=== PATIENT | male | born 1980 | race Caucasian/White ===

== ENCOUNTER 2019-01-03 10:53 | Emergency (ER) | payer MEDICAID ==
--- NOTE | 2019-01-03 11:17 | EDM.PDOC ---
ED HPI GENERAL MEDICAL PROBLEM - General Chief Complaint: General Stated Complaint: FELL AND PASSED OUT Time Seen by Provider: 01/03/19 10:56 Source of Information: Reports: Patient, RN, RN Notes Reviewed History Limitations: Reports: No Limitations - History of Present Illness INITIAL COMMENTS - FREE TEXT/NARRATIVE: Patient presents to the ED at [facility] for the evaluation of a head injury , neck pain, and right wrist pain. Patient states this is a work related injury , he is self employed. Patient states he was stepping from one ladder to the next when his right foot slipped off the ladder, causing him to fall back, hitting his head on a CO2 tank. 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 Patient this he had 1-2 minutes of LOC. He has head and neck pain as well as right shoulder and wrist pain. No previous injury or trauma. No bowel or bladder incontinence. Patient denies any back pain. This was an unwitnessed injury according to the patient. No vision problems. No distracting injuries. Onset: Today, Sudden Onset Date: 01/03/19 Right Hand Pain Score (Numeric/FACES): 4 Right Shoulder Pain Score (Numeric/FACES): 2 Headache Pain Score (Numeric/FACES): 2 - Related Data Allergies Allergy/AdvReac Type Severity Reaction Status Date / Time No Known Allergies Allergy Verified 01/03/19 11:31 Home Meds: Home Meds Omeprazole [Prilosec] 40 mg PO DAILY 01/05/16 [History] buPROPion HCl [Wellbutrin Xl] 300 mg PO DAILY 01/05/16 [History] Baclofen 20 mg PO TID PRN 11/10/16 [History] DULoxetine [Cymbalta] 60 mg PO DAILY 11/10/16 [History] Orphenadrine [Norflex] 100 mg PO BID PRN #10 tab 01/03/19 [Rx] Past Medical History Other HEENT History: HYPERMETROPIA. ASTIGMATISM Cardiovascular History: Reports: None Respiratory History: Reports: None Gastrointestinal History: Reports: Chronic Diarrhea Other Gastrointestinal History: BRIGHT RED RECTAL BLEED Genitourinary History: Reports: None Musculoskeletal History: Reports: Back Pain, Chronic Other Musculoskeletal History: LUMBAR RADICULOPATHY. LUMBAR STENOSIS Neurological History: Reports: None Psychiatric History: Reports: Addiction, Anxiety, Depression Other Psychiatric History: MARIJUANA USE, CONTINUOUS. TOBACCO ABUSE. ALCOHOL ABUSE, DAILY USE Endocrine/Metabolic History: Reports: None Hematologic History: Reports: None Immunologic History: Reports: None Oncologic (Cancer) History: Reports: None Dermatologic History: Reports: None - Past Surgical History Head Surgeries/Procedures: Reports: None HEENT Surgical History: Reports: None Cardiovascular Surgical History: Reports: None GI Surgical History: Reports: None Neurological Surgical History: Reports: Laminectomy Other Neurological Surgeries/Procedures: L4-5 Other Musculoskeletal Surgeries/Procedures:: PIRIFORMIS SYNDROME, back fusion Social & Family History - Caffeine Use Caffeine Use: Reports: Coffee Caffeine Use Comment: 2-4 cups daily ED ROS GENERAL - Review of Systems Review Of Systems: See Below Constitutional: Denies: Fever, Chills Respiratory: Denies: Shortness of Breath, Cough Cardiovascular: Denies: Chest Pain, Palpitations GI/Abdominal: Reports: Nausea. Denies: Abdominal Pain, Vomiting Musculoskeletal: Reports: Neck Pain, Shoulder Pain, Muscle Pain, Muscle Stiffness. Denies: Back Pain, Hand Pain, Leg Pain, Foot Pain Skin: Reports: No Symptoms Neurological: Reports: No Symptoms ED EXAM, GENERAL - Physical Exam Exam: See Below Exam Limited By: No Limitations General Appearance: Alert, No Apparent Distress Eye Exam: Bilateral Eye: EOMI, Normal Inspection, PERRL Ears: Normal External Exam, Normal Canal, Normal TMs Ear Exam: Bilateral Ear: TM normal Head: Normocephalic, Other (right parietal scalp contusion/bump) Neck: Normal Inspection, Supple, Non-Tender Respiratory/Chest: No Respiratory Distress, Lungs Clear, Normal Breath Sounds Cardiovascular: Normal Peripheral Pulses, Regular Rate, Rhythm Peripheral Pulses: 2+: Radial (L), Radial (R) GI/Abdominal: Normal Bowel Sounds, Soft, Non-Tender Back Exam: Normal Inspection Extremities: Other (right wrist pain, dorsum; no obvious bone deformity; skin intact; moderated tendon pain; ROM intake and normal; CMS intake) Neurological: Alert, Oriented Skin Exam: Warm, Dry, Intact, Normal Color Course - Vital Signs Last Recorded V/S: Last Vital Signs Temp 37.2 C 01/03/19 11:00 Pulse 72 01/03/19 12:32 Resp 16 01/03/19 12:32 BP 128/78 01/03/19 12:32 Pulse Ox 100 01/03/19 12:32 - Orders/Labs/Meds Meds: Medications Discontinued Medications Generic Name Dose Route Start Last Admin Trade Name Christianq PRN Reason Stop Dose Admin Acetaminophen 1,000 mg 01/03/19 11:44 01/03/19 11:50 Tylenol Extra Strength PO 01/03/19 11:45 1,000 mg ONETIME ONE Administration Ondansetron HCl 4 mg 01/03/19 11:18 01/03/19 11:50 Zofran Odt PO 01/03/19 11:19 4 mg ONETIME ONE Administration - Radiology Interpretation Free Text/Narrative:: Wrist, right: Negative exam of the right wrist CT C-Spine: No acute findings in the cervical spine CT Head: Negative for any acute intracranial findings Right Shoulder: Mild AC arthritis, otherwise normal See scanned reports in EMR Departure - Departure Time of Disposition: 12:41 Disposition: Home, Self-Care 01 Condition: Good Clinical Impression: Closed head injury with brief loss of consciousness Right shoulder injury Qualifiers: Encounter type: initial encounter Qualified Code(s): S49.91XA - Unspecified injury of right shoulder and upper arm, initial encounter Right wrist injury Qualifiers: Encounter type: initial encounter Qualified Code(s): S69.91XA - Unspecified injury of right wrist, hand and finger(s), initial encounter - Discharge Information *PRESCRIPTION DRUG MONITORING PROGRAM REVIEWED*: Not Applicable *COPY OF PRESCRIPTION DRUG MONITORING REPORT IN PATIENT MARSHA: Not Applicable Prescriptions: Orphenadrine [Norflex] 100 mg PO BID PRN #10 tab PRN Reason: Muscle Spasm Instructions: Head Injury, Adult Referrals: Dee Dee Paris PA-C [Primary Care Provider] - Forms: ED Department Discharge Additional Instructions: 1. Stay well hydrated and rest 2. Use muscle relaxer as needed 3. Continue Tylenol/Advil as needed 4. Use a heating pad 5. See your PCP as symptoms warrant - Problem List Review Problem List Initiated/Reviewed/Updated: Yes - Assessment/Plan Assessment:: CHI w/LOC Right shoulder injury Right wrist injury Work Related accident Plan: Xray discussed with patient. No acute emergency found. Will start on Norflex as needed. Stay well hydrated. Use heating pads. See PCP as symptoms warrant
[2019-01-03] MEDS: Ondansetron 4 MG Tab.DIS PO ONE (11:50)
[2019-01-03] MEDS: Acetaminophen 500 MG Tab PO ONE (11:50)
--- NOTE | 2019-01-03 12:17 | CR ---
[id number] RAD/RAD Shoulder Right 2V Min Exam: RAD Shoulder Right 2V Min Indication:RIGHT SHOULDER PAIN, INJURY. Comparison: No prior imaging for comparison. Discussion: Mild acromioclavicular osteoarthritis. Glenohumeral joint is unremarkable. No fracture or dislocation. No AVN or erosive changes. Bone mineralization is normal. Impression: As above. Radu Pillai MD 01/03/19 6519 Thank you for allowing us to participate in the care of your patient.
--- NOTE | 2019-01-03 12:27 | CT ---
[id number] CT/CT Head WO IV EXAM: NONCONTRAST HEAD CT INDICATION: Head injury and neck pain. COMPARISON: None. DISCUSSION: Right scalp soft tissue swelling. The ventricles and sulci are normal in size and configuration. The brar and white matter are normal in attenuation. No mass effect or midline shift. No acute hemorrhage or extra-axial fluid collection. No acute territorial infarct is identified. A limited look at the orbits and paranasal sinuses is unremarkable. IMPRESSION: 1. Negative for acute intracranial trauma. Junaid Goss MD 01/03/19 5818 Thank you for allowing us to participate in the care of your patient.
--- NOTE | 2019-01-03 12:27 | CT ---
[id number] CT/CT Cervical Spine WO IV EXAM: CT Cervical Spine WO IV INDICATION: HEAD INJURY, NECK PAIN. COMPARISON: None. DISCUSSION: No fracture or compression deformity. Vertebral bodies remain in normal alignment. Scattered changes of spondylosis throughout the cervical spine. No prevertebral soft tissue edema. Lung apices are clear. IMPRESSION: No acute findings in the cervical spine. Radu Pillai MD 01/03/19 1825 Thank you for allowing us to participate in the care of your patient.
--- NOTE | 2019-01-03 12:28 | CR ---
[id number] RAD/RAD Wrist Right 3V Min Exam: RAD Wrist Right 3V Min Indication:WRIST INJURY, PAIN. Comparison: No prior imaging for comparison. Discussion: No significant osseous or soft tissue abnormality. Impression: Negative examination of the wrist. Radu Pillai MD 01/03/19 [id number] Thank you for allowing us to participate in the care of your patient.
[2019-01-03 12:33] VITALS: BP 128/78
== END 2019-01-03 13:00 | disposition home or self-care (01) ==
LOC: VM.ED 10:53
DX: S06.9X9A Unspecified intracranial injury with loss of consciousness of unspecified duration, initial encounter (principal); S49.91XA Unspecified injury of right shoulder and upper arm, initial encounter; S69.91XA Unspecified injury of right wrist, hand and finger(s), initial encounter; W11.XXXA Fall on and from ladder, initial encounter; Z79.899 Other long term (current) drug therapy; Y99.0 Civilian activity done for income or pay
CPT/HCPCS: 70450; 72125; 73030-RT; 73110-RT; 99284-25; A9270-GY

== ENCOUNTER 2019-08-27 11:54 | Emergency (ER) | payer OTHER ==
[2019-08-27] MEDS ORDERED: Sodium Chloride 0.9% 10 ML Syringe FLUSH PRN (12:08)
[2019-08-27] MEDS ORDERED: Sodium Chloride 0.9% 1,000 ML IV ONE (12:12)
--- NOTE | 2019-08-27 12:37 | EDM.PDOC ---
ED HPI GENERAL MEDICAL PROBLEM - General Stated Complaint: CHEST PAIN, CONFUSION Time Seen by Provider: 08/27/19 12:09 Source of Information: Reports: Patient, RN Notes Reviewed History Limitations: Reports: No Limitations - History of Present Illness INITIAL COMMENTS - FREE TEXT/NARRATIVE: Pt. presents to ER with complaints of confusion, fatigue, unsteady gait, chest pain, and generally not feeling well. Pt. states that he felt fine this AM, and throughout the AM developed these symptoms. He is a [place] and was confused [place]. Pt. denies any headache. No numbness/ tingling in the extremities. No problems with balance. Pt. states that his pain is substernal in nature and does not radiate into his jaw, arms, neck, or back. No nausea, vomiting, or diarrhea. Pt. states that he is an alcoholic and would drink half of a 1.75L bottle of hard alcohol a night, but quit 2 days ago. He denies any agitation but complains of sweats. He previously hand stopped drinking for about 10 days in Jul. but started up again the beginning of Aug. He denies any drug use. Onset: Today Location: Reports: Generalized Associated Symptoms: Reports: Confusion, Malaise - Related Data Allergies Allergy/AdvReac Type Severity Reaction Status Date / Time No Known Allergies Allergy Verified 08/27/19 12:59 Home Meds: Home Meds Omeprazole [Prilosec] 20 mg PO DAILY 01/05/16 [History] buPROPion HCl [Wellbutrin Xl] 300 mg PO DAILY 01/05/16 [History] FLUoxetine HCl [Fluoxetine HCl] 80 mg PO DAILY 08/27/19 [History] Gabapentin [Neurontin] 600 mg PO ASDIRECTED 08/27/19 [History] Lisinopril 10 mg PO DAILY 08/27/19 [History] Naltrexone 50 mg PO DAILY 08/27/19 [History] atorvaSTATin [Lipitor] 10 mg PO BEDTIME 08/27/19 [History] tiZANidine HCl [Zanaflex] 2 - 4 mg PO TID PRN 08/27/19 [History] Past Medical History Other HEENT History: HYPERMETROPIA. ASTIGMATISM Cardiovascular History: Reports: None Respiratory History: Reports: None Gastrointestinal History: Reports: Chronic Diarrhea Other Gastrointestinal History: BRIGHT RED RECTAL BLEED Genitourinary History: Reports: None Musculoskeletal History: Reports: Back Pain, Chronic Other Musculoskeletal History: LUMBAR RADICULOPATHY. LUMBAR STENOSIS Neurological History: Reports: None Psychiatric History: Reports: Addiction, Anxiety, Depression Other Psychiatric History: MARIJUANA USE, CONTINUOUS. TOBACCO ABUSE. ALCOHOL ABUSE, DAILY USE Endocrine/Metabolic History: Reports: None Hematologic History: Reports: None Immunologic History: Reports: None Oncologic (Cancer) History: Reports: None Dermatologic History: Reports: None - Past Surgical History HEENT Surgical History: Reports: None Neurological Surgical History: Reports: Laminectomy Other Neurological Surgeries/Procedures: L4-5 Other Musculoskeletal Surgeries/Procedures:: PIRIFORMIS SYNDROME, back fusion Social & Family History - Caffeine Use Caffeine Use: Reports: Coffee Caffeine Use Comment: 2-4 cups daily ED ROS GENERAL - Review of Systems Review Of Systems: See Below Constitutional: Reports: Malaise, Weakness, Fatigue HEENT: Reports: No Symptoms Respiratory: Reports: No Symptoms Cardiovascular: Reports: No Symptoms Endocrine: Reports: No Symptoms GI/Abdominal: Reports: No Symptoms : Reports: No Symptoms Musculoskeletal: Reports: No Symptoms Skin: Reports: No Symptoms Neurological: Reports: Confusion, Weakness, Gait Disturbance Psychiatric: Reports: No Symptoms Hematologic/Lymphatic: Reports: No Symptoms Immunologic: Reports: No Symptoms ED EXAM, GENERAL - Physical Exam Exam: See Below Exam Limited By: No Limitations General Appearance: Alert, WD/WN, No Apparent Distress Eye Exam: Bilateral Eye: EOMI, Normal Fundi, Normal Inspection, PERRL Throat/Mouth: Normal Inspection, Normal Lips, Normal Teeth, Normal Gums, Normal Oropharynx, Normal Voice, No Airway Compromise Head: Atraumatic, Normocephalic Neck: Normal Inspection, Supple, Non-Tender, Full Range of Motion Respiratory/Chest: No Respiratory Distress, Lungs Clear, Normal Breath Sounds, No Accessory Muscle Use, Chest Non-Tender Cardiovascular: Normal Peripheral Pulses, Regular Rate, Rhythm, No Edema, No Gallop, No JVD, No Murmur, No Rub Peripheral Pulses: 4+: Radial (R) GI/Abdominal: Normal Bowel Sounds, Soft, Non-Tender, No Organomegaly, No Distention, No Abnormal Bruit, No Mass, Pelvis Stable (Male) Exam: Deferred Rectal (Males) Exam: Deferred Back Exam: Normal Inspection, Full Range of Motion Extremities: Normal Inspection, Normal Range of Motion, Non-Tender, No Pedal Edema, Normal Capillary Refill Neurological: Alert, Oriented, CN II-XII Intact, Normal Cognition, Normal Gait, Normal Reflexes, No Motor/Sensory Deficits Psychiatric: Normal Affect, Normal Mood Skin Exam: Warm, Dry, Intact, Normal Color, No Rash Lymphatic: No Adenopathy Course - Vital Signs Last Recorded V/S: Last Vital Signs Temp 36.6 C 08/27/19 13:55 Pulse 81 08/27/19 13:55 Resp 18 08/27/19 13:55 BP 148/88 H 08/27/19 13:55 Pulse Ox 98 08/27/19 13:55 - Orders/Labs/Meds Orders: Active Orders 24 hr Category Date Time Status EKG Documentation Completion [RC] STAT Care 08/27/19 12:09 Active Peripheral IV Insertion Adult [OM.PC] Routine Oth 08/27/19 12:09 Ordered Labs: Laboratory Tests 08/27/19 08/27/19 08/27/19 Range/Units 12:30 12:30 12:33 WBC 6.8 (4.0-10.0) x10^3/uL RBC 4.71 (4.5-6.0) x10^6/uL Hgb 15.1 D (14.0-18.0) g/dL Hct 42.8 (40.0-52.0) % MCV 90.9 (78.0-93.0) fL MCH 32.1 H (26.0-32.0) pg MCHC 35.3 (32.0-36.0) g/dL RDW Coeff of Altaf 12.2 (10.0-15.0) % Plt Count 208 D (130-400) x10^3/uL Neut % (Auto) 79.3 (50.0-80.0) % Lymph % (Auto) 15.2 L (25.0-50.0) % Weber % (Auto) 4.7 (2.0-11.0) % Eos % (Auto) 0.4 (0.0-4.0) % Baso % (Auto) 0.4 (0.2-1.2) % PT (10.0-12.8) SEC INR (2.0-3.5) D-Dimer, Quantitative (<=0.58) mg/LFEU Sodium (69-191) mmol/L Potassium (1.5-9.9) mmol/L Chloride (54-184) mmol/L Carbon Dioxide (21-32) mmol/L Anion Gap (10-20) mmol/L BUN (7-18) mg/dL Creatinine (0.70-1.30) mg/dL Est Cr Clr Drug Dosing Estimated GFR (MDRD) Glucose (74-106) mg/dL Lactic Acid (0.4-2.0) mmol/L Calcium (8.5-10.1) mg/dL Corrected Calcium (8.5-10.1) mg/dL Phosphorus (2.6-4.7) mg/dL Magnesium (1.8-2.4) mg/dL Total Bilirubin (0.2-1.0) mg/dL AST (15-37) U/L ALT (16-63) U/L Alkaline Phosphatase (46-116) U/L Troponin I (<=0.056) ng/mL C-Reactive Protein (<=0.9) mg/dL Total Protein (6.4-8.2) g/dL Albumin (3.4-5.0) g/dL Globulin Albumin/Globulin Ratio Urine Color Yellow (YELLOW) Urine Appearance Slightly cloudy H (CLEAR) Urine pH 6.0 (5.0-8.0) Ur Specific [place] 1.010 Urine Protein Negative (NEGATIVE) mg/dL Urine Glucose (UA) Negative (NEGATIVE) mg/dL Urine Ketones Negative (NEGATIVE) mg/dL Urine Occult Blood Trace-intact H (NEGATIVE) Urine Nitrite Negative (NEGATIVE) Urine Bilirubin Negative (NEGATIVE) Urine Urobilinogen 0.2 (0.2) EU/dL Ur Leukocyte Esterase Small H (NEGATIVE) Urine RBC 0-5 (NOT SEEN) /HPF Urine WBC 0-5 (NOT SEEN) /HPF Ur Squamous Epith Cells Not seen (NEGATIVE) /HPF Amorphous Sediment Rare Urine Bacteria Rare (NEGATIVE) /HPF Urine Mucus Rare H (NEGATIVE) /LPF Urine Opiates Screen Negative (NEAGTIVE) Ur Buprenorphine Scrn Negative (NEGATIVE) Ur Oxycodone Screen Negative (NEGATIVE) Ur EDDP (Meth Metab) Negative (NEGATIVE) Urine Methadone Screen Negative (NEGATIVE) Ur Barbiturates Screen Negative (NEGATIVE) Ur Tricyclics Screen Negative (NEGATIVE) Ur Phencyclidine Scrn Negative (NEGATIVE) Ur Amphetamine Screen Negative (NEGATIVE) U Methamphetamines Scrn Negative (NEGATIVE) Urine MDMA Screen Negative (NEGATIVE) U Benzodiazepines Scrn Negative (NEGATIVE) U Cocaine Metab Screen Negative (NEGATIVE) U Marijuana (THC) Screen Negative (NEGATIVE) Ethyl Alcohol (0-3) mg/dL 08/27/19 08/27/19 08/27/19 Range/Units 12:33 12:33 12:33 WBC (4.0-10.0) x10^3/uL RBC (4.5-6.0) x10^6/uL Hgb (14.0-18.0) g/dL Hct (40.0-52.0) % MCV (78.0-93.0) fL MCH (26.0-32.0) pg MCHC (32.0-36.0) g/dL RDW Coeff of Altaf (10.0-15.0) % Plt Count (130-400) x10^3/uL Neut % (Auto) (50.0-80.0) % Lymph % (Auto) (25.0-50.0) % Weber % (Auto) (2.0-11.0) % Eos % (Auto) (0.0-4.0) % Baso % (Auto) (0.2-1.2) % PT 10.0 (10.0-12.8) SEC INR 0.9 L (2.0-3.5) D-Dimer, Quantitative < 0.19 (<=0.58) mg/LFEU Sodium 140 (69-191) mmol/L Potassium 4.2 (1.5-9.9) mmol/L Chloride 102 (54-184) mmol/L Carbon Dioxide 24 (21-32) mmol/L Anion Gap 18.2 (10-20) mmol/L BUN 19 H (7-18) mg/dL Creatinine 1.0 (0.70-1.30) mg/dL Est Cr Clr Drug Dosing TNP Estimated GFR (MDRD) > 60 Glucose 110 H (74-106) mg/dL Lactic Acid (0.4-2.0) mmol/L Calcium 9.2 (8.5-10.1) mg/dL Corrected Calcium 9.12 (8.5-10.1) mg/dL Phosphorus 3.5 (2.6-4.7) mg/dL Magnesium 1.5 L (1.8-2.4) mg/dL Total Bilirubin 0.7 (0.2-1.0) mg/dL AST 29 (15-37) U/L ALT 36 (16-63) U/L Alkaline Phosphatase 96 (46-116) U/L Troponin I < 0.017 (<=0.056) ng/mL C-Reactive Protein 0.3 (<=0.9) mg/dL Total Protein 7.8 (6.4-8.2) g/dL Albumin 4.1 (3.4-5.0) g/dL Globulin 3.7 Albumin/Globulin Ratio 1.11 Urine Color (YELLOW) Urine Appearance (CLEAR) Urine pH (5.0-8.0) Ur Specific [place] Urine Protein (NEGATIVE) mg/dL Urine Glucose (UA) (NEGATIVE) mg/dL Urine Ketones (NEGATIVE) mg/dL Urine Occult Blood (NEGATIVE) Urine Nitrite (NEGATIVE) Urine Bilirubin (NEGATIVE) Urine Urobilinogen (0.2) EU/dL Ur Leukocyte Esterase (NEGATIVE) Urine RBC (NOT SEEN) /HPF Urine WBC (NOT SEEN) /HPF Ur Squamous Epith Cells (NEGATIVE) /HPF Amorphous Sediment Urine Bacteria (NEGATIVE) /HPF Urine Mucus (NEGATIVE) /LPF Urine Opiates Screen (NEAGTIVE) Ur Buprenorphine Scrn (NEGATIVE) Ur Oxycodone Screen (NEGATIVE) Ur EDDP (Meth Metab) (NEGATIVE) Urine Methadone Screen (NEGATIVE) Ur Barbiturates Screen (NEGATIVE) Ur Tricyclics Screen (NEGATIVE) Ur Phencyclidine Scrn (NEGATIVE) Ur Amphetamine Screen (NEGATIVE) U Methamphetamines Scrn (NEGATIVE) Urine MDMA Screen (NEGATIVE) U Benzodiazepines Scrn (NEGATIVE) U Cocaine Metab Screen (NEGATIVE) U Marijuana (THC) Screen (NEGATIVE) Ethyl Alcohol < 3 (0-3) mg/dL 08/27/19 Range/Units 12:33 WBC (4.0-10.0) x10^3/uL RBC (4.5-6.0) x10^6/uL Hgb (14.0-18.0) g/dL Hct (40.0-52.0) % MCV (78.0-93.0) fL MCH (26.0-32.0) pg MCHC (32.0-36.0) g/dL RDW Coeff of Altaf (10.0-15.0) % Plt Count (130-400) x10^3/uL Neut % (Auto) (50.0-80.0) % Lymph % (Auto) (25.0-50.0) % Weber % (Auto) (2.0-11.0) % Eos % (Auto) (0.0-4.0) % Baso % (Auto) (0.2-1.2) % PT (10.0-12.8) SEC INR (2.0-3.5) D-Dimer, Quantitative (<=0.58) mg/LFEU Sodium (69-191) mmol/L Potassium (1.5-9.9) mmol/L Chloride (54-184) mmol/L Carbon Dioxide (21-32) mmol/L Anion Gap (10-20) mmol/L BUN (7-18) mg/dL Creatinine (0.70-1.30) mg/dL Est Cr Clr Drug Dosing Estimated GFR (MDRD) Glucose (74-106) mg/dL Lactic Acid 0.8 (0.4-2.0) mmol/L Calcium (8.5-10.1) mg/dL Corrected Calcium (8.5-10.1) mg/dL Phosphorus (2.6-4.7) mg/dL Magnesium (1.8-2.4) mg/dL Total Bilirubin (0.2-1.0) mg/dL AST (15-37) U/L ALT (16-63) U/L Alkaline Phosphatase (46-116) U/L Troponin I (<=0.056) ng/mL C-Reactive Protein (<=0.9) mg/dL Total Protein (6.4-8.2) g/dL Albumin (3.4-5.0) g/dL Globulin Albumin/Globulin Ratio Urine Color (YELLOW) Urine Appearance (CLEAR) Urine pH (5.0-8.0) Ur Specific [place] Urine Protein (NEGATIVE) mg/dL Urine Glucose (UA) (NEGATIVE) mg/dL Urine Ketones (NEGATIVE) mg/dL Urine Occult Blood (NEGATIVE) Urine Nitrite (NEGATIVE) Urine Bilirubin (NEGATIVE) Urine Urobilinogen (0.2) EU/dL Ur Leukocyte Esterase (NEGATIVE) Urine RBC (NOT SEEN) /HPF Urine WBC (NOT SEEN) /HPF Ur Squamous Epith Cells (NEGATIVE) /HPF Amorphous Sediment Urine Bacteria (NEGATIVE) /HPF Urine Mucus (NEGATIVE) /LPF Urine Opiates Screen (NEAGTIVE) Ur Buprenorphine Scrn (NEGATIVE) Ur Oxycodone Screen (NEGATIVE) Ur EDDP (Meth Metab) (NEGATIVE) Urine Methadone Screen (NEGATIVE) Ur Barbiturates Screen (NEGATIVE) Ur Tricyclics Screen (NEGATIVE) Ur Phencyclidine Scrn (NEGATIVE) Ur Amphetamine Screen (NEGATIVE) U Methamphetamines Scrn (NEGATIVE) Urine MDMA Screen (NEGATIVE) U Benzodiazepines Scrn (NEGATIVE) U Cocaine Metab Screen (NEGATIVE) U Marijuana (THC) Screen (NEGATIVE) Ethyl Alcohol (0-3) mg/dL Meds: Medications Discontinued Medications Generic Name Dose Route Start Last Admin Trade Name Freq PRN Reason Stop Dose Admin Ceftriaxone Sodium 2 gm 08/27/19 13:32 08/27/19 13:39 Rocephin IVPUSH 08/27/19 13:33 2 gm STAT ONE Administration Sodium Chloride 1,000 mls @ 1,000 mls/hr 08/27/19 12:12 08/27/19 13:00 Normal Saline IV 08/27/19 13:11 1,000 mls/hr .BOLUS ONE Administration Sodium Chloride 10 ml 08/27/19 12:08 Saline Flush FLUSH ASDIRECTED PRN Keep Vein Open - Radiology Interpretation Free Text/Narrative:: CT brain is negative for acute pathology Chest x-ray is negative Departure - Departure Time of Disposition: 15:00 Disposition: Home, Self-Care 01 Clinical Impression: UTI (urinary tract infection) - Discharge Information Instructions: Alcohol Withdrawal Syndrome, Urinary Tract Infection, Adult Referrals: Dee Dee Paris PA-C [Primary Care Provider] - Forms: ED Department Discharge Additional Instructions: Bactrim DS 1 twice daily for 7 days Drink plenty of fluids It is possible that your symptoms are being caused by alcohol withdrawl. If you feel agitated, if you are unable to hold down fluids, etc. return to the ER. Recheck in clinic in 10-14 days. - My Orders Last 24 Hours: My Active Orders 08/27/19 12:09 EKG Documentation Completion [RC] STAT Peripheral IV Insertion Adult [OM.PC] Routine - Assessment/Plan Last 24 Hours: My Active Orders 08/27/19 12:09 EKG Documentation Completion [RC] STAT Peripheral IV Insertion Adult [OM.PC] Routine Plan: It is unclear what is causing this patient's symptoms. He does have a UTI which will be treated with Bactrim DS twice daily for a week. He was also given 2 gm of rocephin. I am concerned that is symptoms may be caused by alcohol withdrawl. He was offered admission and observation but refused, stating he would go stay with his sister. He was urged to return to ER if he had any worsening symptoms, agitation, anxiety, or weakness. All questions were answered.
--- NOTE | 2019-08-27 12:59 | CT ---
[id number] CT/CT Head WO IV EXAM: NONCONTRAST HEAD CT INDICATION: Confusion, lightheadedness and blacking out since 1100 COMPARISON: January 03, 2019. DISCUSSION: The ventricles and sulci are normal in size and configuration. The brar and white matter are normal in attenuation. No mass effect or midline shift. No acute hemorrhage or extra-axial fluid collection. No acute territorial infarct is identified. Mild frothy secretions in the left sphenoid sinus. 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 IMPRESSION: 1. No acute intracranial findings. Junaid Goss MD 08/27/19 [id number] Thank you for allowing us to participate in the care of your patient.
--- NOTE | 2019-08-27 13:05 | CR ---
[id number] RAD/RAD Chest PA And Lateral EXAM: RAD Chest PA And Lateral INDICATION: LIGHT HEADED, CONFUSION, BLACKING-OUT SINCE 11:00. COMPARISON: None. DISCUSSION: Cardiomediastinal silhouette is normal in size and contour. No infiltrate, effusion, pneumothorax, or edema. IMPRESSION: Negative examination of the chest. Radu Pillai MD 08/27/19 [id number] Thank you for allowing us to participate in the care of your patient.
[2019-08-27 13:09] LABS: CHLORIDE,CL 102 mmol/L (54-184); SODIUM,NA 140 mmol/L (69-191)
[2019-08-27 13:13] LABS: BARBITURATE SCREEN,URINE NEGATIVE (NEGATIVE); BENZODIAZEPINES SCREEN,URINE NEGATIVE (NEGATIVE); EDDP,URINE SCREEN NEGATIVE (NEGATIVE); METHAMPHETAMINE SCREEN, URINE NEGATIVE (NEGATIVE); TCA SCREEN,URINE NEGATIVE (NEGATIVE); THC SCREEN,URINE 50 NG/ML NEGATIVE (NEGATIVE)
[2019-08-27 13:17] LABS: ANION GAP 18.2 mmol/L (10-20)
[2019-08-27] MEDS ORDERED: cefTRIAXone 2 GM Vial IVPUSH ONE (13:32)
[2019-08-27 14:52] VITALS: BP 148/88; PULSE 81
== END 2019-08-27 14:06 | disposition home or self-care (01) ==
LOC: VM.ED 11:54
DX: N39.0 Urinary tract infection, site not specified (principal); F41.9 Anxiety disorder, unspecified; F32.9 Major depressive disorder, single episode, unspecified; Z79.899 Other long term (current) drug therapy; Z87.891 Personal history of nicotine dependence
CPT/HCPCS: 36415; 70450; 71046; 80053; 80305; 80320; 81001; 83605; 83735; 84100; 84484; 85025; 85379; 85610; 86140; 93005; 96361; 96374; 99285; J0696; J7030; G0480

== ENCOUNTER 2021-05-27 13:35 | Day surgery (SDC) | payer MEDICAID, OTHER ==
[2021-05-27] MEDS ORDERED: fentaNYL 100 MCG/2 ML SDV ONE (14:23)
[2021-05-27] MEDS ORDERED: Propofol 200 MG/20 ML SDV ONE ×3 (14:23→15:41)
[2021-05-27] MEDS: Lactated Ringers 1,000 ML IV SCH (14:26)
[2021-05-27 16:23] VITALS: BP 129/88; PULSE 70
--- NOTE | 2021-05-28 08:13 | OR ---
DATE OF SURGERY: 05/27/2021. REFERRING PROVIDER: Dee Dee Paris PA-C PRE-OPERATIVE DIAGNOSES: 1. History of bloody stools off and on for the past year. Symptoms are worse with alcohol intake. He does have a previous history of rectal bleeding and had last colonoscopy done about 5 years ago. 2. Chronic diarrhea with 3 to 4 loose stools per day. 3. The patient thinks there is a positive family history of colon cancer in paternal grandmother and maternal grandmother. POST-OPERATIVE DIAGNOSES: 1. Single 3 mm polyp at 15 cm, removed using cold forceps. 2. Normal-appearing colonic mucosa. Random biopsies taken from each segment. 3. Normal-appearing distal ileum. Cold biopsy x2 bites taken. PROCEDURE: Colonoscopy with polypectomy x1 using cold forceps, and random biopsies from colonic mucosa and distal ileum. SURGEON: Merritt Waterman M.D. ANESTHESIA: Monitored anesthesia care. BOWEL PREP: Good. Wing is a 41-year-old male who was brought to the endoscopy suite after discussing risks and benefits of the procedure. Informed consent was obtained for conscious sedation and colonoscopy with or without biopsy and/or polypectomy. We also discussed possibility of missed lesions. Pre-procedure exam was unremarkable. IV, oxygen, and monitors were placed. The patient was placed in the left lateral decubitus position. Sedation was administered and a digital rectal exam was performed and unremarkable. Colonoscope was passed into the rectum and slowly advanced all the way to the cecum. Cecum was viewed and photographed. Ileocecal valve was intubated and distal ileum was normal in appearance. Cold biopsy x2 bites taken from the distal ileum. The colonoscope was slowly withdrawn and the mucosa was closely observed in a direct circumferential manner. Random colon biopsies were taken from each segment on the way out. The ascending colon was unremarkable. The transverse colon was unremarkable. The descending colon was unremarkable. The sigmoid colon was unremarkable. Retroflexion was performed and rectal mucosa was unremarkable. Scope was removed. The patient tolerated the procedure well. The patient was monitored until that baseline status. Discharge instructions were reviewed and the patient was discharged in good condition. COMPLICATIONS: None. TOTAL TIME: 19 minutes. ESTIMATED BLOOD LOSS: About 1 mL. RECOMMENDATIONS/FOLLOW-UP: We will await results of path report to determine ideal followup interval and the need for any further evaluation and/or treatment. I would like to kindly thank Dee Dee Paris for this referral. DMB: 05/27/2021 16:09:56 MODL: 05/27/2021 16:46:28 /[id number]
== END 2021-05-27 16:37 | disposition home or self-care (01) ==
LOC: VM.SDS 13:35
PROVIDERS: ATTEND Family Medicine
DX: K63.5 Polyp of colon (principal); K52.9 Noninfective gastroenteritis and colitis, unspecified; I12.9 Hypertensive chronic kidney disease with stage 1 through stage 4 chronic kidney disease, or unspecified chronic kidney disease; N18.30 Chronic kidney disease, stage 3 unspecified; Z80.0 Family history of malignant neoplasm of digestive organs; K21.9 Gastro-esophageal reflux disease without esophagitis; F33.1 Major depressive disorder, recurrent, moderate; N28.1 Cyst of kidney, acquired; Z79.899 Other long term (current) drug therapy; E78.5 Hyperlipidemia, unspecified; Z87.891 Personal history of nicotine dependence
CPT/HCPCS: 00811; J2704; J3010; J7120

== ENCOUNTER 2021-07-06 17:19 | Emergency (ER) | payer MEDICAID ==
--- NOTE | 2021-07-06 17:41 | EDM.PDOC ---
ED HPI GENERAL MEDICAL PROBLEM - General Chief Complaint: Drug or Alcohol Abuse Stated Complaint: ETOH ABUSE Time Seen by Provider: 07/06/21 17:20 Source of Information: Reports: Patient History Limitations: Reports: No Limitations - History of Present Illness INITIAL COMMENTS - FREE TEXT/NARRATIVE: Patient states he presents here to the ER secondary to questionable alcohol wi thdrawals. He states he stopped drinking yesterday about 7 last night after drinking about 750ml of fireball and a few beers. He states today he was sitting at home when he knows he should went to his primary care provider but he waited too late and decided to come to the ER hoping he can get some detox meds for he does not go through withdrawals. He did speak with his counselor out of [place] over the phone and she told him to go to the emergency room. Patient states he has had intermittent bouts of alcoholism before and he was inpatient treatment in November but got out and started drinking again and is try to quit several times but he does keeps going back. Currently at this time he does not have any symptoms but he does not want to go into DTs like he has in the past. He has no other complaints at this time Associated Symptoms: Reports: No Other Symptoms - Related Data Allergies Allergy/AdvReac Type Severity Reaction Status Date / Time No Known Allergies Allergy Verified 05/27/21 14:27 Home Meds: Home Meds buPROPion HCL [Wellbutrin Xl] 300 mg PO DAILY 01/05/16 [History] atorvaSTATin [Lipitor] 10 mg PO BEDTIME 08/27/19 [History] Cyanocobalamin (Vitamin B12) [Vitamin B12] 250 mcg PO DAILY 05/13/21 [History] Folic Acid 1 mg PO DAILY 05/13/21 [History] Omeprazole Magnesium [Prilosec Otc] 20 mg PO DAILY 05/13/21 [History] QUEtiapine Fumarate [Seroquel] 50 mg PO BEDTIME PRN 05/13/21 [History] Thiamine [Vitamin B-1] 100 mg PO DAILY 05/13/21 [History] Venlafaxine [Effexor XR] 225 mg PO DAILY 05/13/21 [History] lisinopriL [Lisinopril] 20 mg PO DAILY 05/13/21 [History] FLUoxetine [PROzac] 10 mg PO DAILY 05/27/21 [History] Past Medical History Other HEENT History: HYPERMETROPIA. ASTIGMATISM Cardiovascular History: Reports: None, High Cholesterol, Hypertension Respiratory History: Reports: None Gastrointestinal History: Reports: Chronic Diarrhea, GERD Other Gastrointestinal History: BRIGHT RED RECTAL BLEED Genitourinary History: Reports: Renal Disease Musculoskeletal History: Reports: Back Pain, Chronic Other Musculoskeletal History: LUMBAR RADICULOPATHY. LUMBAR STENOSIS Neurological History: Reports: None Psychiatric History: Reports: Addiction, Anxiety, Depression Other Psychiatric History: MARIJUANA USE, CONTINUOUS. TOBACCO ABUSE. ALCOHOL ABUSE, DAILY USE Endocrine/Metabolic History: Reports: None Hematologic History: Reports: None Immunologic History: Reports: None Oncologic (Cancer) History: Reports: None Dermatologic History: Reports: None - Past Surgical History Head Surgeries/Procedures: Reports: None HEENT Surgical History: Reports: None Cardiovascular Surgical History: Reports: None GI Surgical History: Reports: Other (See Below) Other GI Surgeries/Procedures: removal foreign body from rectum Neurological Surgical History: Reports: Laminectomy Other Neurological Surgeries/Procedures: L4-5 Other Musculoskeletal Surgeries/Procedures:: PIRIFORMIS SYNDROME, back fusion Social & Family History - Caffeine Use Caffeine Use: Reports: Coffee Caffeine Use Comment: 2-4 cups daily ED ROS GENERAL - Review of Systems Review Of Systems: See Below Constitutional: Reports: No Symptoms HEENT: Reports: No Symptoms Respiratory: Reports: No Symptoms Cardiovascular: Reports: No Symptoms Endocrine: Reports: No Symptoms GI/Abdominal: Reports: No Symptoms : Reports: No Symptoms Musculoskeletal: Reports: No Symptoms Skin: Reports: No Symptoms Neurological: Reports: No Symptoms Psychiatric: Reports: No Symptoms Hematologic/Lymphatic: Reports: No Symptoms Immunologic: Reports: No Symptoms ED EXAM, GENERAL - Physical Exam Exam: See Below Exam Limited By: No Limitations General Appearance: Alert, WD/WN, No Apparent Distress Eye Exam: Bilateral Eye: EOMI, Normal Inspection, PERRL Ears: Normal External Exam, Normal Canal, Hearing Grossly Normal, Normal TMs Nose: Normal Inspection, Normal Mucosa, No Blood Throat/Mouth: Normal Inspection, Normal Lips, Normal Teeth, Normal Gums, Normal Oropharynx, Normal Voice, No Airway Compromise Head: Atraumatic, Normocephalic. No: Sinus Tenderness Neck: Normal Inspection, Supple, Non-Tender, Full Range of Motion Respiratory/Chest: No Respiratory Distress, Lungs Clear, Normal Breath Sounds, No Accessory Muscle Use, Chest Non-Tender Cardiovascular: Normal Peripheral Pulses, Regular Rate, Rhythm, No Edema, No Gallop, No JVD, No Murmur, No Rub GI/Abdominal: Normal Bowel Sounds, Soft, Non-Tender, No Organomegaly, No Distention Back Exam: Full Range of Motion Extremities: Normal Inspection, Normal Range of Motion, Non-Tender, No Pedal Edema, Normal Capillary Refill Neurological: Alert, Oriented, CN II-XII Intact, Normal Cognition, Normal Gait, No Motor/Sensory Deficits Psychiatric: Normal Affect, Normal Mood Skin Exam: Warm, Dry, Intact, Normal Color Course - Vital Signs Text/Narrative:: We will check UDS secondary to patient's history and history of drug abuse Patient has a normal exam has no signs or symptoms or complaints at this time Try to call primary care provider multiple times unable to touch base with primary UDS is negative we will give the patient prescription for Ativan 0.5 mg 1 every 12 hours 2 patient will be given 1 here - Orders/Labs/Meds Labs: Laboratory Tests 07/06/21 Range/Units 17:50 Urine Opiates Screen Negative (NEGATIVE) Ur Buprenorphine Scrn Negative (NEGATIVE) Ur Oxycodone Screen Negative (NEGATIVE) Urine Methadone Screen Negative (NEGATIVE) Ur Barbiturates Screen Negative (NEGATIVE) Ur Phencyclidine Scrn Negative (NEGATIVE) Ur Amphetamine Screen Negative (NEGATIVE) U Methamphetamines Scrn Negative (NEGATIVE) Urine MDMA Screen Negative (NEGATIVE) U Benzodiazepines Scrn Negative (NEGATIVE) U Cocaine Metab Screen Negative (NEGATIVE) U Marijuana (THC) Screen Negative (NEGATIVE) Departure - Departure Time of Disposition: 18:30 Disposition: Home, Self-Care 01 Condition: Good Clinical Impression: ETOH abuse - Discharge Information *PRESCRIPTION DRUG MONITORING PROGRAM REVIEWED*: No *COPY OF PRESCRIPTION DRUG MONITORING REPORT IN PATIENT MARSHA: No Instructions: Alcohol Use Disorder Referrals: Dee Dee Paris PA-C [Primary Care Provider] - Forms: ED Department Discharge Additional Instructions: Follow-up with your primary care provider in the next 24 hours Do not use any alcohol Return to emergency room if anything changes or gets worse - Problem List & Annotations (1) ETOH abuse SNOMED Code(s): 93891437 Code(s): F10.10 - ALCOHOL ABUSE, UNCOMPLICATED Status: Acute Current Visit: No
[2021-07-06 17:58] LABS: BARBITURATE SCREEN,URINE NEGATIVE (NEGATIVE); BENZODIAZEPINES SCREEN,URINE NEGATIVE (NEGATIVE); METHAMPHETAMINE SCREEN, URINE NEGATIVE (NEGATIVE); THC SCREEN,URINE 50 NG/ML NEGATIVE (NEGATIVE)
[2021-07-06 17:59] LABS: BUPRENORPHINE SCREEN,URINE NEGATIVE (NEGATIVE)
[2021-07-06] MEDS ORDERED: LORazepam 0.5 MG Tab PO ONE (18:36)
[2021-07-06 19:30] VITALS: BP 142/91; PULSE 86
== END 2021-07-06 19:21 | disposition home or self-care (01) ==
LOC: VM.ED 17:19
DX: F10.10 Alcohol abuse, uncomplicated (principal); E78.00 Pure hypercholesterolemia, unspecified; I10 Essential (primary) hypertension; K21.9 Gastro-esophageal reflux disease without esophagitis; Z79.899 Other long term (current) drug therapy
CPT/HCPCS: 80305-QW; 99283; 99284; A9270-GY

== ENCOUNTER 2022-04-21 09:14 | Day surgery (SDC) | payer MEDICAID ==
[~2022-04-21 09:14] MED LIST: Lactated Ringers 1,000 ML IV SCH
[2022-04-21] MEDS ORDERED: fentaNYL 100 MCG/2 ML SDV ONE (09:41)
[2022-04-21] MEDS ORDERED: Propofol 200 MG/20 ML SDV ONE ×2 (09:41→10:39)
[2022-04-21 11:13] VITALS: BP 137/86; PULSE 78
== END 2022-04-21 11:55 | disposition home or self-care (01) ==
LOC: VM.SDS 09:14
PROVIDERS: ATTEND Family Medicine
DX: K29.60 Other gastritis without bleeding (principal); K21.9 Gastro-esophageal reflux disease without esophagitis; F17.210 Nicotine dependence, cigarettes, uncomplicated; I10 Essential (primary) hypertension; F33.1 Major depressive disorder, recurrent, moderate; N17.9 Acute kidney failure, unspecified; F41.9 Anxiety disorder, unspecified; E78.00 Pure hypercholesterolemia, unspecified; Z79.899 Other long term (current) drug therapy; Z98.890 Other specified postprocedural states
CPT/HCPCS: 00731; 43239; J2704; J3010; J7120

== ENCOUNTER 2022-12-13 13:43 | Emergency (ER) | payer MEDICAID ==
[2022-12-13] MEDS ORDERED: Sodium Chloride 0.9% 10 ML Syringe FLUSH PRN (14:03)
[2022-12-13] MEDS ORDERED: Pantoprazole 40 MG Vial IVPUSH ONE (14:17)
[2022-12-13] MEDS ORDERED: Lactated Ringers 1,000 ML IV ONE (14:17)
[2022-12-13] MEDS ORDERED: Ondansetron 4 MG/2 ML SDV IVPUSH ONE (14:17)
[2022-12-13 14:31] LABS: BARBITURATE SCREEN,URINE NEGATIVE (NEGATIVE)
[2022-12-13 14:32] LABS: BENZODIAZEPINES SCREEN,URINE NEGATIVE (NEGATIVE); BUPRENORPHINE SCREEN,URINE NEGATIVE (NEGATIVE); METHAMPHETAMINE SCREEN, URINE NEGATIVE (NEGATIVE); THC SCREEN,URINE 50 NG/ML NEGATIVE (NEGATIVE)
[2022-12-13 14:41] LABS: PTT,PARTIAL THROMBOPLSTIN TIME 27.9 SEC (20.5-30.9)
[2022-12-13 14:55] LABS: CHLORIDE,CL 100 mmol/L (98-107); SODIUM,NA 138 mmol/L (136-145)
[2022-12-13 14:57] LABS: ANION GAP 15.5 mmol/L (5-15); ESTIMATED GFR 70 mL/min (>=60)
[2022-12-13] MEDS ORDERED: Magnesium Sulfate/Water 2 GM in Premix Bag 1 BAG IV ONE (15:08)
[2022-12-13 18:06] VITALS: BP 141/87; PULSE 107
== END 2022-12-13 17:47 | disposition home or self-care (01) ==
LOC: VM.ED 13:43
DX: K29.20 Alcoholic gastritis without bleeding (principal); F10.10 Alcohol abuse, uncomplicated; E78.00 Pure hypercholesterolemia, unspecified; I10 Essential (primary) hypertension; K21.9 Gastro-esophageal reflux disease without esophagitis; E66.9 Obesity, unspecified; Z79.899 Other long term (current) drug therapy
CPT/HCPCS: 36415; 71045; 80053; 80305-QW; 80307; 82140; 83735; 84100; 84443; 84484; 85025; 85610; 85730; 93005; 93010; 96365; 96366; 96375; 99284; 99284-25; C9113; J2405; J3475; J7120

== ENCOUNTER 2022-12-21 11:29 | Emergency (ER) | payer MEDICAID ==
[2022-12-21] MEDS ORDERED: Ondansetron 4 MG Tab.DIS PO ONE (12:25)
[2022-12-21 12:33] LABS: BARBITURATE SCREEN,URINE NEGATIVE (NEGATIVE)
[2022-12-21 12:34] LABS: BENZODIAZEPINES SCREEN,URINE NEGATIVE (NEGATIVE); BUPRENORPHINE SCREEN,URINE NEGATIVE (NEGATIVE); METHAMPHETAMINE SCREEN, URINE NEGATIVE (NEGATIVE); THC SCREEN,URINE 50 NG/ML NEGATIVE (NEGATIVE)
[2022-12-21] MEDS ORDERED: Ondansetron 4 MG/2 ML SDV IV ONE (12:54)
[2022-12-21] MEDS ORDERED: FOLIC ACID PO ONE ×4 (12:55)
[2022-12-21] MEDS: Sodium Chloride 0.9% 1,000 ML IV ONE ×2 (12:55→14:30)
[2022-12-21] MEDS ORDERED: Pantoprazole 40 MG Vial IVPUSH ONE (12:55)
[2022-12-21] MEDS ORDERED: THIAMINE PO ONE ×4 (12:55)
[2022-12-21] MEDS ORDERED: MAGNESIUM OXIDE PO ONE ×4 (12:55)
[2022-12-21] MEDS ORDERED: MULTIVITAMINS PO ONE ×4 (12:55)
[2022-12-21] MEDS ORDERED: LORazepam 2 MG/ML SDV IVPUSH PRN (13:00)
[2022-12-21 13:20] LABS: ACETAMINOPHEN 0 ug/ml (10-30); ANION GAP 16.1 mmol/L (5-15); CHLORIDE,CL 103 mmol/L (98-107); ESTIMATED GFR 85 mL/min (>=60); SODIUM,NA 140 mmol/L (136-145)
[2022-12-21 13:31] LABS: CORONAVIRUS COVID-19 NAA NEGATIVE (NEGATIVE); RESPIRATORY SYNCYTIAL VIR NAA NEGATIVE (NEGATIVE)
[2022-12-21 20:46] VITALS: BP 124/82; PULSE 62
== END 2022-12-21 16:05 ==
LOC: VM.ED 11:29
DX: F10.220 Alcohol dependence with intoxication, uncomplicated (principal); E78.00 Pure hypercholesterolemia, unspecified; I10 Essential (primary) hypertension; E66.9 Obesity, unspecified; Z68.30 Body mass index [BMI] 30.0-30.9, adult; Z79.899 Other long term (current) drug therapy; Z20.822 Contact with and (suspected) exposure to COVID-19
CPT/HCPCS: 0241U; 36415; 80053; 80143; 80179; 80305-QW; 80307; 81003; 83690; 83735; 84443; 85025; 96361; 96372; 96374; 96375; 99284; 99284-25; A9270-GY; C9113; J1790; J2060; J2405; J7030